=== PATIENT | male | born 1970 | race Caucasian/White ===

== ENCOUNTER 2016-07-31 19:42 | Emergency (ER) | payer MEDICAID, OTHER ==
[~2016-07-31] VITALS: Ht 180.3 cm; Wt 240.0 kg
[~2016-07-31 19:42] MED LIST: ALBU8I INH; DOXY100T PO
[2016-07-31 19:44] VITALS: BP 137/88; PULSE 103; RESP 18; TEMP 97.6; O2SAT 96
[2016-07-31 20:04] VITALS: BP 156/94; PULSE 98; RESP 24; O2SAT 97
--- NOTE | 2016-07-31 20:10 | PD ---
HPI Chief Complaint: Chest Pain Time Seen by Provider: 20:00 Travel History International Travel<30 days: No Contact w/Intl Traveler<30days: No Traveled to known affect area: No History of Present Illness HPI This is a 46-year-old male who presents to the emergency department with chest discomfort in the center of his chest, moderate severity that started when he was eating a pizza. He felt very short of breath at the time. He uses albuterol inhaler in the car and then felt better. The chest pain was nonradiating. He denies any associated nausea or diaphoresis. He has a long history of asthma. He says this feels very similar to his asthma. He says his symptoms are about a 4/5 out of 10 currently. He denies any associated cough, fevers or chills. PFSH Past Medical History Hx Anticoagulant Therapy: Yes (ASA) Asthma: Yes Heart Rhythm Problems: No Cancer: No Cardiac Catheterization: No Cardiovascular Problems: Yes High Cholesterol: No Chest Pain: Yes Congestive Heart Failure: No Diabetes: Yes (NO MEDS) Patient Takes Glucophage: No Diminished Hearing: No Gastrointestinal Disorders: Yes (ACID REFLUX) GERD: Yes Hypertension: Yes Musculoskeletal: Yes Neurologic: Yes (meralgia paresthetica) Psychiatric: No Respiratory: Yes (ASTHMA, SLEEP APNEA) Immunizations Current: No Myocardial Infarction: No Sleep Apnea: Yes (cpap ) PNEUMOCCOCAL Vaccine (Year): 1 Past Surgical History Coronary Artery Bypass Graft: No Other Surgery: Yes (THUMB TENDON 1983) Family History Family Myocardial Infarction: Yes Social History Alcohol Use: No Tobacco Use: No Substance Use: No Allergies-Medications (Allergen,Severity, Reaction): Coded Allergies: Prednisone (Verified Allergy, Severe, TACHYCARDIA, 07/31/16) Reported Meds & Prescriptions Reported Meds & Active Scripts Active Vibramycin 100 mg (Doxycycline Hyclate) 100 Mg Cap 1 Tab PO BID Reported Ventolin Hfa (Albuterol Sulfate) 8 Gm Aero 2 Puff INH Q4 * SHAKE WELL BEFORE USE * Review of Systems Except as stated in HPI: all other systems reviewed are Neg Physical Exam Narrative GENERAL: Morbidly obese SKIN: Focused skin assessment warm and dry. HEAD: Atraumatic. Normocephalic. EYES: Pupils equal and round. No injection or drainage. ENT: Moist mucous membranes NECK: Trachea midline. CARDIOVASCULAR: Regular rate and rhythm. No murmur appreciated. RESPIRATORY: Clear to auscultation. Breath sounds equal bilaterally. Exam is limited by habitus. Breathing comfortably with no accessory muscle use GASTROINTESTINAL: Abdomen soft, non-tender, nondistended. MUSCULOSKELETAL: No obvious deformities. NEUROLOGICAL: Awake and alert. No obvious cranial nerve deficits. Moving all extremities. PSYCHIATRIC: Appropriate mood and affect; insight and judgment normal. Data Data Last Documented VS Vital Signs Date Time Temp Pulse Resp B/P Pulse Ox O2 Delivery O2 Flow Rate FiO2 07/31/16 20:04 98 24 156/94 97 Room Air 07/31/16 19:44 97.6 MDM Medical Decision Making Medical Screen Exam Complete: Yes Emergency Medical Condition: Yes Interpretation(s) ekg: nsr, no st changes Differential Diagnosis Acute asthma exacerbation, bronchitis, acute coronary syndrome Narrative Course This is a 46-year-old male who presents to the emergency department having had some chest tightness and shortness of breath will he was eating pizza. The patient says it felt like his asthma. An EKG was obtained which was nonischemic. He says he feels really well. I offered him labs to evaluate his heart he declined and says he really thinks this was respiratory and feels very similar to symptoms he had in the past. He was given a bronchodilator and feels much better. Patient will be discharged home. Diagnosis Primary Impression: Asthma Qualified Code: J45.20 - Mild intermittent asthma without complication Patient Instructions: General Instructions Additional Instructions: If you develop severe shortness of breath, chest pain, or difficulty breathing return to the emergency department. Follow up with your primary care physician in 2-3 days if your symptoms have not improved. Med/Other Pt SpecificInfo: No Change to Meds Disposition: 01 DISCHARGE HOME Condition: Stable Radha Nguyễn MD Jul 31, 2016 20:10
[2016-07-31] MEDS ORDERED: RESP: ALBUTEROL 2.5 MG/IPRATROPIUM 0.5 MG NEB (SCH) NEB ONE (20:15)
--- NOTE | 2016-08-01 10:16 | EKG ---
Date Performed: 07/31/2016 Time Performed: 20:03:35 PTAGE: 46 years EKG: Sinus rhythm NORMAL ECG Compared to prior tracing no significant change PREVIOUS TRACING : 10/16/2013 05.45 DOCTOR: Ewelina Garvin Interpretating Date/Time 08/01/2016 10:14:11
== END 2016-07-31 22:10 | disposition home or self-care (01) ==
LOC: NEPE 19:42
DX: J45.20 Mild intermittent asthma, uncomplicated (principal)
CPT/HCPCS: 93005; 94664

== ENCOUNTER 2017-02-27 22:46 | Emergency (ER) | payer OTHER ==
[~2017-02-27] VITALS: Ht 180.3 cm; Wt 225.0 kg
[2017-02-27 22:47] VITALS: BP 122/71; PULSE 105; RESP 16; TEMP 97.9; O2SAT 97
--- NOTE | 2017-02-27 23:37 | PD ---
HPI Chief Complaint: GI Complaint Time Seen by Provider: 23:23 Travel History International Travel<30 days: No Contact w/Intl Traveler<30days: No Traveled to known affect area: No History of Present Illness HPI Patient reports epigastric pain for 3 hours diarrhea and having eaten leftover food from a taco stand his daughter ate and she got sick as well he denies vomiting but he feels very nauseous and he has not taken anything for the nausea or the pain he has a history of gastritis and acid reflux but he says he took his Tums and did not do anything for his pain today is morbidly obese and in the ER he is in mild discomfort PFSH Past Medical History Hx Anticoagulant Therapy: Yes (ASA) Asthma: Yes Heart Rhythm Problems: No Cancer: No Cardiac Catheterization: No Cardiovascular Problems: Yes High Cholesterol: No Chest Pain: Yes Congestive Heart Failure: No Diabetes: Yes (NO MEDS) Diminished Hearing: No Gastrointestinal Disorders: Yes (ACID REFLUX) GERD: Yes Hypertension: Yes Musculoskeletal: Yes Neurologic: Yes (meralgia paresthetica) Psychiatric: No Respiratory: Yes (ASTHMA, SLEEP APNEA) Immunizations Current: No Myocardial Infarction: No Sleep Apnea: Yes (cpap ) PNEUMOCCOCAL Vaccine (Year): 1 Past Surgical History Coronary Artery Bypass Graft: No Other Surgery: Yes (THUMB TENDON 1982) Social History Alcohol Use: No Tobacco Use: No Substance Use: No Allergies-Medications (Allergen,Severity, Reaction): Coded Allergies: prednisone (Unverified Allergy, Severe, TACHYCARDIA, 12/07/16) Reported Meds & Prescriptions Reported Meds & Active Scripts Active Pepcid (Famotidine) 20 Mg Tab 20 Mg PO BID Reported Metformin (Metformin HCl) 500 Mg Tab 500 Mg PO DAILY With a meal Ventolin Hfa 18 GM Inh (Albuterol Sulfate) 90 Mcg/Act Aer 2 Puff INH Q4-6H PRN Review of Systems Except as stated in HPI: all other systems reviewed are Neg Gastrointestinal: Positive: Nausea, Diarrhea, Abdominal Pain, No: Vomiting Physical Exam Narrative GENERAL: Morbidly obese to awake alert SKIN: Warm and dry. HEAD: Atraumatic. Normocephalic. EYES: Pupils equal and round. No scleral icterus. No injection or drainage. ENT: No nasal bleeding or discharge. Mucous membranes pink and moist. NECK: Trachea midline. No JVD. CARDIOVASCULAR: Regular rate and rhythm. RESPIRATORY: No accessory muscle use. Clear to auscultation. Breath sounds equal bilaterally. GASTROINTESTINAL: Abdomen obese with epigastric tenderness with palpation normal bowel sounds though difficult to auscultate due to his body habitus MUSCULOSKELETAL: Extremities without clubbing, cyanosis, or edema. No obvious deformities. NEUROLOGICAL: Awake and alert. No obvious cranial nerve deficits. Motor grossly within normal limits. Five out of 5 muscle strength in the arms and legs. Normal speech. PSYCHIATRIC: Appropriate mood and affect; insight and judgment normal. Data Data Last Documented VS Orders Orders Ondansetron Odt (Zofran Odt) (02/27/17 23:45) Al-Mag Hy-Si 40-40-4 Mg/Ml Liq (Mag-Al P (02/27/17 23:45) Lidocaine 2% Viscous (Xylocaine 2% Visco (02/27/17 23:45) MDM Medical Decision Making Medical Screen Exam Complete: Yes Emergency Medical Condition: Yes Differential Diagnosis GERD versus bacterial food poisoning toxin versus gastroenteritis viral Narrative Course Patient's physical exam shows epigastric pain only no lower abdominal pain although the latter exam is limited by the fact he is morbidly obese GI cocktail viscous lidocaine and Maalox is given and patient tolerates it and feels much better. Sleep wakes up pain free 100% pain-free tells the nurse Diagnosis Primary Impression: GERD (gastroesophageal reflux disease) Patient Instructions: Gastritis (ED), General Instructions Scripts Famotidine (Pepcid) 20 Mg Tab 20 MG PO BID, #30 TAB 0 Refills Prov: Darrion Garduno MD 02/28/17 Disposition: 01 DISCHARGE HOME Condition: Good Darrion Garduno MD Feb 27, 2017 23:37
[2017-02-27] MEDS ORDERED: METF500T PO (23:42)
[2017-02-27] MEDS ORDERED: VENTAER INH (23:42)
[2017-02-27] MEDS ORDERED: ALUMINUM/MAGNESIUM/SIMETH 30 ML CUP PO ONE (23:45)
[2017-02-27] MEDS ORDERED: ONDANSETRON ODT 4 MG TAB PO ONE (23:45)
[2017-02-27] MEDS ORDERED: LIDOCAINE VISCOUS 2% SOLN 15 ML UDC SWISH-SWAL ONE (23:45)
[2017-02-28] VITALS: BP 151/65; PULSE 94; RESP 16; O2SAT 97
[2017-02-28] MEDS ORDERED: FAMO1TAB37 PO (01:16)
== END 2017-02-28 01:32 | disposition home or self-care (01) ==
LOC: NEPC 22:46
DX: K21.9 Gastro-esophageal reflux disease without esophagitis (principal)
CPT/HCPCS: 99283

== ENCOUNTER 2017-03-21 18:57 | Emergency (ER) | payer OTHER ==
[~2017-03-21 18:57] MED LIST changes: -ALBU8I INH; -DOXY100T PO; +FAMO1TAB37 PO; +METF500T PO; +VENTAER INH
[2017-03-21 18:58] VITALS: BP 142/84; PULSE 105; RESP 16; TEMP 99.2; O2SAT 98
[2017-03-21 20:23] LABS: AUTOMATED NEUTROPHIL # 5.2 TH/MM3 (1.8-7.7); BASOPHIL # 0.1 TH/MM3 (0-0.2); BASOPHIL % 0.8 % (0.0-2.0); EOSINOPHIL % 0.6 % (0.0-4.0); HEMATOCRIT 42.3 % (39.0-51.0); HEMO FLAGS DIFF FINAL; LYMPH % 23.7 % (9.0-44.0); LYMPHOCYTE # 1.8 TH/MM3 (1.0-4.8); MEAN CELL VOLUME 85.4 FL (80.0-100.0); MEAN CORPUSCULAR HEMOGLOBIN 28.5 PG (27.0-34.0); MEAN CORPUSCULAR HGB CONC 33.4 % (32.0-36.0); MONO % 7.1 % (0.0-8.0); NEUT % 67.8 % (16.0-70.0); PLATELET COUNT 298 TH/MM3 (150-450); RED BLOOD COUNT 4.95 MIL/MM3 (4.50-5.90); RED CELL DISTRIBUTION WIDTH 14.7 % (11.6-17.2); WHITE BLOOD COUNT 7.7 TH/MM3 (4.0-11.0)
[2017-03-21 20:34] LABS: APTT (PATIENT) 28.5 SEC (24.3-30.1); PROTHROMBIN TIME - PATIENT 10.7 SEC (9.8-11.6)
--- NOTE | 2017-03-21 20:39 | RADRPT ---
EXAM DATE/TIME: 03/21/2017 19:15 [place] COMPARISON: CHEST PA & LAT, December 07, 2013, 13:19. INDICATIONS : Chest pain MEDICAL HISTORY : Asthma, bronchitis SURGICAL HISTORY : None. ENCOUNTER: Initial ACUITY: 2 days PAIN SCORE: 4/10 LOCATION: chest FINDINGS: PA and lateral views of the chest demonstrate the lungs to be symmetrically aerated without evidence of mass, infiltrate or effusion. The cardiomediastinal contours are unremarkable. Osseous structure s are intact with minimal degenerative spurring of the dorsal spine. CONCLUSION: No acute cardiopulmonary. Sami Lopez MD on March 21, 2017 at 20:37 Board Certified Radiologist. This report was verified electronically.
[2017-03-21 20:48] LABS: ANION GAP 6 MEQ/L (5-15); AST (GOT) 24 U/L (15-37); BLOOD UREA NITROGEN 13 MG/DL (7-18); CHLORIDE 102 MEQ/L (98-107); GLOMERULAR FILTRATION RATE 97 ML/MIN (>89); MAGNESIUM 1.9 MG/DL (1.5-2.5); SODIUM (NA) 135 MEQ/L (136-145)
[2017-03-21 20:49] LABS: ALT (GPT) 32 U/L (12-78)
[2017-03-21 20:53] LABS: ALKALINE PHOSPHATASE 95 U/L (45-117); CREATINE KINASE 185 U/L (39-308); TOTAL BILIRUBIN ADULT 0.5 MG/DL (0.2-1.0)
[2017-03-21 21:06] LABS: CKMB 2.2 NG/ML (0.5-3.6)
[2017-03-21] MEDS ORDERED: BUPR75TA PO (22:21)
[2017-03-21] MEDS ORDERED: ADVA250A INH (22:21)
[2017-03-21 22:22] VITALS: BP 143/75; PULSE 102; RESP 22; O2SAT 95
[2017-03-21] MEDS ORDERED: LEVOFLOXACIN 750 MG PREMIX INJ 150 ML IV ONE (22:30)
[2017-03-21] MEDS ORDERED: SODIUM CHLORIDE 0.9% FLUSH 10 ML FLUSH IVF PRN (22:30)
[2017-03-21] MEDS ORDERED: predniSONE 20 MG TAB PO ONE (22:30)
--- NOTE | 2017-03-21 22:30 | PD ---
HPI Chief Complaint: Chest Pain Time Seen by Provider: 22:09 Travel History International Travel<30 days: No Contact w/Intl Traveler<30days: No Traveled to known affect area: No History of Present Illness HPI The patient is a 46 year old male who presents to the [facility] emergency department with a history of chest pain that he reports began yesterday. He reports that the chest pain is coming and going. He reports that the chest pain is a pressure sensation. He denies having any radiation of the pain. He reports that the pain feels like he has asked that strapped. He reports that he has been belching which seems to relieve the discomfort. He reports that he' s had a diminished appetite because eating makes it worse. 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 He reports that he is over the last 3 weeks also had a cough is productive of yellow to green sputum. He reports having a history of asthma. Over the last 2 days he has been using his inhaler and nebulizer machine more frequently. On Tuesday he reports having a subjective fever. He reports that he had chills on Tuesday. He denies having any nausea, vomiting, or diarrhea. He denies having any diaphoresis. Otherwise on review of systems , the patient denies having any neck pain, abdominal pain, diarrhea, urinary symptoms, or neurologic symptoms. [facility] Past Medical History Narrative Medical The patient's past medical history is significant for diabetes mellitus, morbid obesity, acid reflux, asthma. The patient reports that he last had a stress test done approximately 10 years ago. The patient's current weight is 478 pounds. The patient additionally reports that he has been diagnosed with gallbladder problems in the past. Hx Anticoagulant Therapy: Yes (ASA) Asthma: Yes Heart Rhythm Problems: No Cancer: No Cardiac Catheterization: No Cardiovascular Problems: Yes High Cholesterol: No Chest Pain: Yes Congestive Heart Failure: No Diabetes: Yes Diminished Hearing: No Gastrointestinal Disorders: Yes (ACID REFLUX) GERD: Yes Heparin Induced Thrombocytopen: No Hypertension: Yes Musculoskeletal: Yes Neurologic: Yes (meralgia paresthetica) Psychiatric: No Respiratory: Yes (ASTHMA, SLEEP APNEA) Immunizations Current: No Myocardial Infarction: No Sleep Apnea: Yes (cpap ) PNEUMOCCOCAL Vaccine (Year): 1 Past Surgical History Narrative Surgical The patient's past surgical history is significant for tendon repair of the left hand. Coronary Artery Bypass Graft: No Other Surgery: Yes (THUMB TENDON 1982) Social History Alcohol Use: Yes (rarely ) Tobacco Use: No Substance Use: No Allergies-Medications (Allergen,Severity, Reaction): Coded Allergies: prednisone (Unverified Allergy, Severe, TACHYCARDIA, 03/21/17) Reported Meds & Prescriptions Reported Meds & Active Scripts Active Pepcid (Famotidine) 20 Mg Tab 20 Mg PO BID Reported Bupropion HCl 75 Mg Tab 75 Mg PO BID Advair Diskus Inh (Fluticasone-Salmeterol Inh) 250-50 Mcg/Blist Aer 1 Puff INH BID Rinse mouth after use. Metformin (Metformin HCl) 500 Mg Tab 500 Mg PO DAILY With a meal Ventolin Hfa 18 GM Inh (Albuterol Sulfate) 90 Mcg/Act Aer 2 Puff INH Q4-6H PRN Review of Systems Except as stated in HPI: all other systems reviewed are Neg General / Constitutional: Positive: Fever, Chills Eyes: No: Visual changes HENT: Positive: Rhinorrhea, Congestion, No: Headaches Cardiovascular: Positive: Chest Pain or Discomfort, Dyspnea on exertion Respiratory: Positive: Cough, Shortness of Breath Gastrointestinal: Positive: Indigestion, Loss of Appetite, No: Nausea, Vomiting , Diarrhea, Abdominal Pain Genitourinary: No: Dysuria Musculoskeletal: No: Pain Skin: No Rash Neurologic: No: Weakness Psychiatric: No: Depression Endocrine: No: Polydipsia Hematologic/Lymphatic: No: Easy Bruising Physical Exam Narrative General: The patient is a well-developed well-nourished male in no acute distress. Head and Neck exam: Head is normocephalic atraumatic. Eyes: EOMI, pupils are equal round and reactive to light. Nose: Midline septum with pink mucous membranes Mouth: Dentition unremarkable. Moist mucus membranes. Posterior oropharynx is not erythematous. No tonsillar hypertrophy. Uvula midline. Airway patent. Neck: No palpable lymphadenopathy. No nuchal rigidity. No thyromegaly. Cardiovascular: Regular rate and rhythm without murmurs, gallops, or rubs. Lungs: Decreased breath sounds in bilateral bases, no wheezes, rhonchi, or crackles are audible. Abdomen: Soft, with reported tenderness on palpation of the midepigastric area. No other tenderness on palpation of the other quadrants of the abdomen. No guarding, rebound, or rigidity. Normal bowel sounds are audible. No tenderness on palpation of McBurney's point. Negative Schmitz's sign. Extremities: No clubbing or cyanosis. The patient has trace pedal edema bilateral lower extremities which she reports is chronic and actually improved compared to previously. 2+ pulses in all 4 extremities. Back: No spinous process tenderness to palpation. No costovertebral angle tenderness to palpation. Neurologic Exam: Grossly nonfocal. Skin Exam: No rash noted. Intact skin that is warm and dry. Data Data Last Documented VS Vital Signs Date Time Temp Pulse Resp B/P (MAP) Pulse Ox O2 Delivery O2 Flow Rate FiO2 03/21/17 23:15 22 97 Room Air 03/21/17 22:35 21 03/21/17 22:22 102 03/21/17 18:58 99.2 Orders Orders Electrocardiogram (03/21/17 19:06) Ckmb (Isoenzyme) Profile (03/21/17 19:06) Complete Blood Count With Diff (03/21/17 19:06) Comprehensive Metabolic Panel (03/21/17 19:06) Magnesium (Mg) (03/21/17 19:06) Prothrombin Time / Inr (Pt) (03/21/17 19:06) Act Partial Throm Time (Ptt) (03/21/17 19:06) Troponin I (03/21/17 19:06) Lipase (03/21/17 19:06) Chest, Pa & Lat (03/21/17 19:06) CKMB (03/21/17 20:00) CKMB% (03/21/17 20:00) Levofloxacin 750 Mg Premix Inj (Levaquin (03/21/17 22:30) Iv Access Insert/Monitor (03/21/17 22:23) Ecg Monitoring (03/21/17 22:23) Oximetry (03/21/17 22:23) Oxygen Administration (03/21/17 22:23) Sodium Chloride 0.9% Flush (Ns Flush) (03/21/17 22:30) Albuterol-Ipratropium Neb (Duoneb Neb) (03/21/17 22:30) Prednisone (Deltasone) (03/21/17 22:30) Electrocardiogram (03/21/17 22:30) Creatine Kinase (Cpk) (03/21/17 22:30) Ckmb (Isoenzyme) Profile (03/21/17 22:30) Troponin I (03/21/17 22:30) CKMB (03/21/17 22:44) CKMB% (03/21/17 22:44) Ed Discharge Order (03/22/17 00:33) Labs Laboratory Tests Test 03/21/17 20:00 03/21/17 22:44 White Blood Count 7.7 TH/MM3 Red Blood Count 4.95 MIL/MM3 Hemoglobin 14.1 GM/DL Hematocrit 42.3 % Mean Corpuscular Volume 85.4 FL Mean Corpuscular Hemoglobin 28.5 PG Mean Corpuscular Hemoglobin Concent 33.4 % Red Cell Distribution Width 14.7 % Platelet Count 298 TH/MM3 Mean Platelet Volume 8.0 FL Neutrophils (%) (Auto) 67.8 % Lymphocytes (%) (Auto) 23.7 % Monocytes (%) (Auto) 7.1 % Eosinophils (%) (Auto) 0.6 % Basophils (%) (Auto) 0.8 % Neutrophils # (Auto) 5.2 TH/MM3 Lymphocytes # (Auto) 1.8 TH/MM3 Monocytes # (Auto) 0.6 TH/MM3 Eosinophils # (Auto) 0.0 TH/MM3 Basophils # (Auto) 0.1 TH/MM3 CBC Comment DIFF FINAL Differential Comment Prothrombin Time 10.7 SEC Prothromb Time International Ratio 1.0 RATIO Activated Partial Thromboplast Time 28.5 SEC Blood Urea Nitrogen 13 MG/DL Creatinine 0.85 MG/DL Random Glucose 110 MG/DL Total Protein 8.1 GM/DL Albumin 2.8 GM/DL Calcium Level 8.6 MG/DL Magnesium Level 1.9 MG/DL Alkaline Phosphatase 95 U/L Aspartate Amino Transf (AST/SGOT) 24 U/L Alanine Aminotransferase (ALT/SGPT) 32 U/L Total Bilirubin 0.5 MG/DL Sodium Level 135 MEQ/L Potassium Level 4.0 MEQ/L Chloride Level 102 MEQ/L Carbon Dioxide Level 27.0 MEQ/L Anion Gap 6 MEQ/L Estimat Glomerular Filtration Rate 97 ML/MIN Total Creatine Kinase 185 U/L 225 U/L Creatine Kinase MB 2.2 NG/ML 2.1 NG/ML Troponin I LESS THAN 0.02 NG/ML LESS THAN 0.02 NG/ML Lipase 115 U/L [facility] Medical Decision Making Medical Screen Exam Complete: Yes Emergency Medical Condition: Yes Medical Record Reviewed: Yes Differential Diagnosis Acute bronchitis, versus pneumonia, versus acid reflux, versus acute coronary syndrome, versus asthma exacerbation, versus pleurisy Narrative Course During the course of the patients emergency department visit, the patients history, examination, and differential diagnosis were reviewed with the patient. The patient was placed on a pvc monitor with oximetry and frequent blood pressure monitoring. The patient had [-] IV access obtained and blood work sent for analysis. An EKG was done on arrival. The patient's EKG reveals a sinus rhythm with a heart rate of 98, no acute ST segment elevation or depression, QRS duration 74 ms, QTC 421 ms 3 The patient was initially provided Levaquin 750 IV 1, a DuoNeb 2, prednisone 40 mg by mouth 1. The patients laboratory studies were reviewed and remarkable for a white count of 7.7, hemoglobin 14.1, platelets 298 with a normal differential. CMP is remarkable for sodium of 135, glucose 110, CPK 185, troponin I less than 0.02, albumin 2.8, lipase 1:15. Repeat set of cardiac enzymes was done and found to be again within normal limits. PT 10.7, PTT 28.5. Radiology studies were reviewed and remarkable for a chest x-ray that shows no acute cardiopulmonary disease. Given the patient's 3 week history of cough and congestion with asthma exacerbation over the last couple days, I suspect that the patient's symptoms are related to bronchitis and an asthma exacerbation. The patient will be discharged home with a prescription for prednisone by mouth. The patient reports that he does not do well with IV steroids as a cause palpitations. The patient was instructed to use his inhaler as previously recommended. The patient will be discharged home with an antibiotic prescription. The patient is resting comfortably and feels better, is alert and in no distress. The patients results and examination findings were discussed with the patient. The repeat examination is unremarkable and benign. The history, exam, diagnostic testing, and current condition do not suggest any significant pathology to warrant further testing, continued ED treatment, admission, or surgical evaluation at this point. The vital signs have been stable. The patient does not have uncontrollable pain, intractable vomiting, or other significant symptoms. The patient's condition is stable and appropriate for discharge. The patient will pursue further outpatient evaluation with a primary care physician or other designated or consulting physician as indicated in the discharge instructions. The patient expressed understanding and was agreeable with this plan. Diagnosis Primary Impression: Asthma exacerbation Qualified Codes: J45.21 - Mild intermittent asthma with (acute) exacerbation Additional Impression: Bronchitis Referrals: Primary Care Physician 2 days Patient Instructions: Acute Bronchitis (ED), Asthma (ED), General Instructions Med/Other Pt SpecificInfo: Prescription(s) given Scripts Doxycycline Hyclate (Doxycycline Hyclate) 100 Mg Cap 100 MG PO BID for Infection, #20 CAP 0 Refills Prov: Sol Ramirez MD 03/22/17 Prednisone (Prednisone) 20 Mg Tab 20 MG PO BID for 5 Days, #10 TAB 0 Refills Prov: Sol Ramirez MD 03/22/17 Disposition: 01 DISCHARGE HOME Condition: Stable Sol Ramirez MD Mar 21, 2017 22:30
[2017-03-21 22:35] VITALS: O2SAT 97
[2017-03-21] MEDS: RESP: ALBUTEROL 2.5 MG/IPRATROPIUM 0.5 MG NEB (SCH) INH (22:36)
[2017-03-21 23:15] VITALS: RESP 22; O2SAT 97
[2017-03-21 23:38] LABS: CREATINE KINASE 225 U/L (39-308)
[2017-03-21 23:50] LABS: CKMB 2.1 NG/ML (0.5-3.6)
[2017-03-22] MEDS ORDERED: PRED20 PO (00:39)
[2017-03-22] MEDS ORDERED: DOXY100C PO (00:39)
[2017-03-22 01:00] VITALS: BP 136/69; PULSE 94; RESP 18; O2SAT 96
--- NOTE | 2017-03-22 17:35 | EKG ---
Date Performed: 03/21/2017 Time Performed: 19:48:33 PTAGE: 46 years EKG: Sinus rhythm Since previous tracing, no significant change noted NORMAL ECG PREVIOUS TRACING : 07/31/2016 20.03 DOCTOR: Lia Vallejo Interpretating Date/Time 03/22/2017 17:34:09
--- NOTE | 2017-03-22 17:35 | EKG ---
Date Performed: 03/21/2017 Time Performed: 23:09:45 PTAGE: 46 years EKG: Sinus rhythm Since previous tracing, no significant change noted NORMAL ECG PREVIOUS TRACING : 03/21/2017 19.48 DOCTOR: Lia Vallejo Interpretating Date/Time 03/22/2017 17:34:27
== END 2017-03-22 01:47 | disposition home or self-care (01) ==
LOC: NEPE 18:57
DX: J45.901 Unspecified asthma with (acute) exacerbation (principal); J40 Bronchitis, not specified as acute or chronic; J45.909 Unspecified asthma, uncomplicated; E11.9 Type 2 diabetes mellitus without complications; K21.9 Gastro-esophageal reflux disease without esophagitis; I10 Essential (primary) hypertension; G47.30 Sleep apnea, unspecified; Z79.52 Long term (current) use of systemic steroids; Z79.899 Other long term (current) drug therapy
CPT/HCPCS: 71020; 80053; 82550; 82552; 83690; 83735; 84484; 85025; 85610; 85730; 93005; 94640; 94664; 96374; 99285; J1956; J7512

== ENCOUNTER 2017-09-13 04:47 | Emergency (ER) | payer OTHER ==
[~2017-09-13 04:47] MED LIST changes: +ADVA250A INH; +BUPR75TA PO; +DOXY100C PO; +PRED20 PO
[2017-09-13 05:00] VITALS: BP 133/74; PULSE 77; RESP 23; TEMP 96.3; O2SAT 98
[2017-09-13 05:14] VITALS: BP 142/78; PULSE 74; RESP 15; O2SAT 97
[2017-09-13] MEDS ORDERED: ONDANSETRON ODT 4 MG TAB PO ONE (05:30)
[2017-09-13] MEDS ORDERED: MECLIZINE HCL 25 MG TAB PO ONE (05:30)
--- NOTE | 2017-09-13 05:30 | PD ---
HPI Chief Complaint: Dizziness Time Seen by Provider: 05:26 Travel History International Travel<30 days: No Contact w/Intl Traveler<30days: No Traveled to known affect area: No History of Present Illness HPI 47-year-old male presents to the emergency department by private transportation for complaint of new onset of dizziness. Patient states he felt well when he went to bed around 11:30 PM on Tuesday evening. Patient states that he awakened around 3:30 AM and got up to go to the bathroom and noted dizziness. Patient did not notice any balance disturbance no sudden onset thunderclap or worst ever headache no visual disturbance no speech disturbance no confusion no upper or lower extremity numbness tingling or weakness no chest pain no shortness of breath nausea but no vomiting and no abdominal pain or flank pain. Patient's had no recent febrile illness or respiratory illness also no recent vomiting or diarrhea or urinary symptoms. No recent antibiotic use. Patient has history of asthma but has not had a recent exacerbation and also has history of heartburn/GERD for which she is prescribed Pepcid but has not been taking this medication for several weeks. Patient has not noticed any palpitations or heart racing. No reported diaphoresis. Patient also has history of hypertension and diabetes. No report of polyuria or polyphagia or polydipsia. Patient does complain of 5/10 intensity had pain. No report of photophobia or phonophobia. Patient reports sudden movements makes his dizziness worse. PFSH Past Medical History Narrative Medical Morbid obesity hypertension diabetes sleep apnea tendon surgery no tobacco use; nursing notes reviewed Hx Anticoagulant Therapy: Yes (ASA) Asthma: Yes Depression: Yes Heart Rhythm Problems: No Cancer: No Cardiac Catheterization: No Cardiovascular Problems: Yes High Cholesterol: No Chest Pain: Yes Congestive Heart Failure: No Diabetes: Yes Patient Takes Glucophage: Yes Diminished Hearing: No Gastrointestinal Disorders: Yes (ACID REFLUX) GERD: Yes Heparin Induced Thrombocytopen: No Hypertension: Yes Musculoskeletal: Yes Neurologic: Yes (meralgia paresthetica) Psychiatric: No Respiratory: Yes (asthma,cpap) Immunizations Current: No Myocardial Infarction: No Sleep Apnea: Yes (cpap ) PNEUMOCCOCAL Vaccine (Year): 1 Past Surgical History Coronary Artery Bypass Graft: No Other Surgery: Yes (THUMB TENDON 1982) Family History Family Myocardial Infarction: Yes Social History Alcohol Use: Yes (rarely ) Tobacco Use: No Substance Use: No Allergies-Medications (Allergen,Severity, Reaction): Coded Allergies: prednisone (Unverified Allergy, Severe, TACHYCARDIA, 09/13/17) Reported Meds & Prescriptions Reported Meds & Active Scripts Active Pepcid (Famotidine) 20 Mg Tab 20 Mg PO BID Reported Bupropion HCl 75 Mg Tab 75 Mg PO BID Advair Diskus Inh (Fluticasone-Salmeterol Inh) 250-50 Mcg/Blist Aer 1 Puff INH BID Rinse mouth after use. Metformin (Metformin HCl) 500 Mg Tab 500 Mg PO DAILY With a meal Ventolin Hfa 18 GM Inh (Albuterol Sulfate) 90 Mcg/Act Aer 2 Puff INH Q4-6H PRN Review of Systems Except as stated in HPI: all other systems reviewed are Neg General / Constitutional: No: Fever, Chills Eyes: No: Visual changes HENT: Positive: Headaches, Vertigo, No: Neck Stiffness, Neck Pain Cardiovascular: No: Chest Pain or Discomfort, Palpitations Respiratory: No: Cough, Shortness of Breath Gastrointestinal: Positive: Nausea, No: Vomiting, Diarrhea, Abdominal Pain Genitourinary: No: Frequency, Dysuria, Flank Pain Musculoskeletal: No: Myalgias, Arthralgias Skin: No Rash Neurologic: Positive: Dizziness, Headache (5/10), No: Weakness, Syncope, Focal Abnormalities, Coordination Problem, Ataxia, Change in Mentation, Slurred Speech , Paresthesia Psychiatric: No: Anxiety Hematologic/Lymphatic: No: Lymph Node Enlargement Physical Exam Narrative GENERAL: Well-developed well-nourished morbidly obese male in no acute distress no respiratory distress; GCS 15 SKIN: Warm and dry. HEAD: Atraumatic. Normocephalic. EYES: Pupils equal and round. No scleral icterus. No injection or drainage. ENT: No nasal bleeding or discharge. Mucous membranes pink and moist. NECK: Trachea midline. No JVD. CARDIOVASCULAR: Regular rate and rhythm. RESPIRATORY: No accessory muscle use. Clear to auscultation. Breath sounds equal bilaterally. GASTROINTESTINAL: Abdomen soft, non-tender, nondistended. Hepatic and splenic margins not palpable. MUSCULOSKELETAL: Extremities without clubbing, cyanosis, or edema. No obvious deformities. NEUROLOGICAL: Awake and alert. No obvious cranial nerve deficits. Motor grossly within normal limits. Five out of 5 muscle strength in the arms and legs. No pronator drift. Normal speech. PSYCHIATRIC: Appropriate mood and affect; insight and judgment normal. Data Data Last Documented VS Vital Signs Date Time Temp Pulse Resp B/P (MAP) Pulse Ox O2 Delivery O2 Flow Rate FiO2 09/13/17 05:14 78 15 97 Room Air 09/13/17 05:14 142/78 (99) 09/13/17 05:[address] Brain W/O Iv Contrast(Rout) (09/13/17 ) Ondansetron Odt (Zofran Odt) (09/13/17 05:30) Meclizine (Antivert) (09/13/17 05:30) Blood Glucose (09/13/17 05:30) MDM Medical Decision Making Medical Screen Exam Complete: Yes Emergency Medical Condition: Yes Medical Record Reviewed: Yes Interpretation(s) glucose: [address] 09/13/17 0000 Signed Impressions: Service Date/Time: Wednesday, September 13, 2017 05:45 - CONCLUSION: Negative noncontrast head CT Tim Oakes MD Vital Signs Date Time Temp Pulse Resp B/P (MAP) Pulse Ox O2 Delivery O2 Flow Rate FiO2 09/13/17 05:14 78 15 97 Room Air 09/13/17 05:14 74 15 142/78 (99) 97 Room Air 09/13/17 05:00 96.3 77 23 133/74 (93) 98 Differential Diagnosis Dizziness, vertigo, labyrinthitis, sinusitis, viral syndrome, uncontrolled hypertension, arrhythmia, hypoglycemia, orthostatic near syncope. Narrative Course Patient sent for CT brain noncontrast as well as administered Pepcid 20 mg by mouth for complaint of reflux and chronic heartburn, Antivert/meclizine for dizziness as well as Zofran for nausea. CT brain noncontrast reveals no acute abnormality it is 6:46 AM patient feels clinically improved and is stable for outpatient management Diagnosis Primary Impression: Vertigo, benign positional Qualified Codes: H81.10 - Benign paroxysmal vertigo, unspecified ear Referrals: Primary Care Physician 2 days Patient Instructions: General Instructions Departure Forms: Tests/Procedures, Work Release Special Instructions: no work x 1 day Additional Instructions: Take medications as prescribed Follow-up with primary care provider Increase fluid hydration Return the emergency department for any concerns or change in condition No work 1 day Med/Other Pt SpecificInfo: Prescription(s) given Scripts Ondansetron Odt (Zofran Odt) 4 Mg Tab 4 MG SL Q6HR Y for Nausea/Vomiting, #10 TAB 0 Refills Prov: Consuelo Hernandez MD 09/13/17 Meclizine (Meclizine) 25 Mg Tab 25 MG PO Q6HR Y for VERTIGO, #12 TAB 0 Refills Prov: Consuelo Hernandez MD 09/13/17 Disposition: 01 DISCHARGE HOME Condition: Stable Consuelo Hernandez MD September 13, 2017 05:30
--- NOTE | 2017-09-13 06:12 | RADRPT ---
EXAM DATE/TIME: 09/13/2017 05:45 [facility] COMPARISON: No previous studies available for comparison. INDICATIONS : Dizziness. RADIATION DOSE: 64.63 CTDIvol (mGy) MEDICAL HISTORY : Cardiovascular disease. Hypertension. Diabetes mellitus type 2.GERD SURGICAL HISTORY : None. ENCOUNTER: Initial ACUITY: 1 day PAIN SCALE: 0/10 LOCATION: cranial TECHNIQUE: Multiple contiguous axial images were obtained of the head. Using automated exposure control and adj ustment of the mA and/or kV according to patient size, radiation dose was kept as low as reasonably a chievable to obtain optimal diagnostic quality images. DICOM format image data is available electro nically for review and comparison. FINDINGS: CEREBRUM: The ventricles are normal for age. No evidence of midline shift, mass lesion, hemorrhage or acute in farction. No extra-axial fluid collections are seen. POSTERIOR FOSSA: The cerebellum and brainstem are intact. The 4th ventricle is midline. The cerebellopontine angle i s unremarkable. EXTRACRANIAL: The visualized portion of the orbits is intact. SKULL: The calvaria is intact. No evidence of skull fracture. CONCLUSION: Negative noncontrast head CT Tim Oakes MD on September 13, 2017 at 6:10 Board Certified Radiologist. This report was verified electronically.
[2017-09-13] MEDS ORDERED: ZOFR4TAB3 SL (06:46)
[2017-09-13] MEDS ORDERED: MECL-62 PO (06:46)
== END 2017-09-13 07:14 | disposition home or self-care (01) ==
LOC: NEPC 04:47
DX: H81.10 Benign paroxysmal vertigo, unspecified ear (principal); E11.9 Type 2 diabetes mellitus without complications; Z79.84 Long term (current) use of oral hypoglycemic drugs
CPT/HCPCS: 70450; 99283